=== PATIENT | female | born 1975 | race Caucasian/White ===

== ENCOUNTER 2019-04-30 22:04 | Emergency (ER) | payer SELFPAY ==
[2019-05-01] MEDS: LORAZEPAM 0.5 MG TAB PO (01:31)
[2019-05-01] MEDS: KETOROLAC 60 MG INJ IM (02:15)
== END 2019-05-01 02:12 | disposition home or self-care (01) ==
LOC: FTE 22:04
DX: S69.91XA Unspecified injury of right wrist, hand and finger(s), initial encounter (principal); F41.0 Panic disorder [episodic paroxysmal anxiety]; Y04.8XXA Assault by other bodily force, initial encounter; Y92.9 Unspecified place or not applicable
CPT/HCPCS: 29130; 73140; 81025; 99283-25